=== PATIENT | female | born 1985 | race Two or more races ===

== ENCOUNTER 2018-06-27 20:55 | Inpatient (IN) | payer MEDICAID, MEDICARE, OTHER ==
[~2018-06-27] VITALS: Ht 165.1 cm; Wt 116.5 kg
[2018-06-27 22:21] LABS: HEMOGLOBIN 10.7 g/dl (12.0-15.5); MEAN CORPUSCULAR HEMOGLOBIN 24.2 pg (27.0-33.0); MEAN CORPUSCULAR HGB CONC 30.6 g/dl (32.0-36.5); MEAN CORPUSCULAR VOLUME 79.2 fl (80.0-96.0); PLATELET COUNT, AUTOMATED 418 10^3/uL (150-450); RED BLOOD COUNT 4.42 10^6/uL (4.00-5.40); WHITE BLOOD COUNT 10.1 10^3/uL (4.0-10.0)
[2018-06-27 22:33] LABS: HCG, SERUM QUALITATIVE NEGATIVE (NEGATIVE)
[2018-06-27 22:39] LABS: AMPHETAMINES LEVEL URINE NEGATIVE (NEGATIVE); BARBITURATES URINE NEGATIVE (NEGATIVE); BENZODIAZEPINES URINE NEGATIVE (NEGATIVE); CANNABINOIDS URINE NEGATIVE (NEGATIVE); COCAINE METABOLITE URINE NEGATIVE (NEGATIVE); METHADONE URINE NEGATIVE (NEGATIVE); OPIATES URINE NEGATIVE (NEGATIVE); PHENCYCLIDINE URINE NEGATIVE (NEGATIVE)
[2018-06-27 22:50] LABS: BLOOD UREA NITROGEN 16 MG/DL (7-18); CALCIUM LEVEL 8.9 MG/DL (8.5-10.1); CARBON DIOXIDE LEVEL 28 MEQ/L (21-32); CHLORIDE LEVEL 107 MEQ/L (98-107); CREATININE FOR GFR 0.88 MG/DL (0.55-1.30); GLOMERULAR FILTRATION RATE > 60.0 (>60); GLUCOSE, FASTING 110 MG/DL (70-100); POTASSIUM SERUM 4.2 MEQ/L (3.5-5.1); SODIUM LEVEL 140 MEQ/L (136-145)
[2018-06-27 22:51] LABS: ACETAMINOPHEN LEVEL < 2.0 UG/ML (10.0-30.0); ALBUMIN 3.7 GM/DL (3.2-5.2); ALT/SGPT 18 U/L (12-78); BILIRUBIN,DIRECT < 0.1 MG/DL (0.0-0.2); BILIRUBIN,TOTAL 0.2 MG/DL (0.2-1.0); ETHYL ALCOHOL (ETHANOL) < 0.003 % (0.000-0.010); SALICYLATE LEVEL < 1.7 MG/DL (5.0-30.0); TOTAL PROTEIN 7.7 GM/DL (6.4-8.2)
[2018-06-27] MEDS ORDERED: MOM 30ML SUSPENSION UDC PO PRN (23:45)
[2018-06-27] MEDS ORDERED: MAALOX 30 ML SUSP *UDC PO PRN (23:45)
[2018-06-27] MEDS ORDERED: ACETAMINOPHEN TAB 650MG DOSE (2X325MG) PO PRN (23:45)
[2018-06-27] MEDS ORDERED: OLANZapine 5 MG TAB PO PRN (23:45)
[2018-06-27] MEDS ORDERED: traZODone 50 MG TAB PO PRN (23:45)
[2018-06-28] MEDS ORDERED: QUET1TAB9 PO (00:09)
[2018-06-28] MEDS ORDERED: LORA1TAB12 PO (00:09)
[2018-06-28] MEDS ORDERED: LYRI75CA PO (00:09)
[2018-06-28] MEDS ORDERED: HYDR200T3 PO (00:09)
[2018-06-28] MEDS ORDERED: LAMO100T80 PO (00:09)
[2018-06-28] MEDS ORDERED: DICL75TA PO (00:09)
[2018-06-28] MEDS ORDERED: LATU40TA PO (00:09)
[2018-06-28] MEDS ORDERED: BUPR150T5 PO (00:09)
[2018-06-28] MEDS ORDERED: ENBR50IN6 SC (00:09)
[2018-06-28] MEDS ORDERED: DULO60CA35 PO (00:09)
[2018-06-28] MEDS ORDERED: PANT40TA3 PO (00:09)
[2018-06-28] MEDS ORDERED: PROAAER10 INH (00:09)
[2018-06-28 01:28] VITALS: BP 129/84
[2018-06-28 07:00] VITALS: BP 133/62
[2018-06-28] MEDS ORDERED: PANTOPRAZOLE 40MG TAB (PROTONIX) PO SCH ×2 (09:00→21:00)
[2018-06-28] MEDS ORDERED: DULoxetine 30 MG CAP (CYMBALTA) PO SCH (09:00)
[2018-06-28] MEDS: DICLOFENAC EPOLAMINE 1.3 % PATCH TOP SCH ×2 (09:00→21:00)
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
[2018-06-28] MEDS: HYDROXYCHLOROQUINE 200 MG TAB PO SCH ×2 (12:26→21:21)
[2018-06-28] MEDS: lamoTRIgine 100MG TAB PO SCH ×2 (12:27→21:21)
[2018-06-28] MEDS: PREGABALIN 75 MG CAP(LYRICA) PO SCH ×3 (12:28→21:22)
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
[2018-06-28 18:00] VITALS: BP 145/76
[2018-06-28] MEDS: QUEtiapine FUMARATE 200 MG TAB PO SCH (21:21)
[2018-06-28] MEDS: DULoxetine 30 MG CAP (CYMBALTA) PO SCH (21:22)
[2018-06-29 06:46] VITALS: BP 117/63
[2018-06-29] MEDS: HYDROXYCHLOROQUINE 200 MG TAB PO SCH ×2 (09:00→20:23)
[2018-06-29] MEDS: PREGABALIN 75 MG CAP(LYRICA) PO SCH ×3 (09:00→20:23)
[2018-06-29] MEDS: DICLOFENAC EPOLAMINE 1.3 % PATCH TOP SCH ×2 (09:00→20:20)
[2018-06-29] MEDS: lamoTRIgine 100MG TAB PO SCH ×2 (09:00→20:23)
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
--- NOTE | 2018-06-29 13:39 | MHIPN ---
DATE: 06/29/2018 SUBJECTIVE: "I did not sleep well, I feel tired because my ideas. Irritable bowel syndrome has flared up". OBJECTIVE: She is a 32-year-old female, , , unemployed, who was admitted because she came to the emergency room stating that she has suicidal thoughts and she has a razor in her car. Patient has legal issues. She is afraid of being arrested again and currently is depressed, has some vague suicidal thoughts. MENTAL STATUS EXAMINATION: Somewhat disheveled, sleeping in her room. Behavior is cooperative, somewhat withdrawn. Eye contact is indirect. Speech is soft, few words. Mood is depressed. Affect is constricted. Thought process linear and goal directed. Thought content: Complains of vague suicidal thoughts. Denied any auditory or visual hallucinations. She is oriented to time, place, and person. Memory is intact. Insight and judgment are good. DIAGNOSES: 1. Mood disorder, not otherwise specified. 2. Rule out bipolar disorder. Most recent episode depressed. 3. Borderline personality disorder. 4. Generalized anxiety disorder. 5. Posttraumatic stress disorder (PTSD). 6. Rule out alcohol use disorder. ASSESSMENT AND PLAN: Patient continues to be depressed. Complains of some physical problems and will be seen by the seconds grader. We will continue the same current medications. Followup with seconds grader's recommendation. Continue individual and group therapy.
[2018-06-29 18:00] VITALS: BP 117/59
[2018-06-29] MEDS: QUEtiapine FUMARATE 200 MG TAB PO SCH (20:23)
[2018-06-29] MEDS: PANTOPRAZOLE 40MG TAB (PROTONIX) PO SCH (20:23)
[2018-06-29] MEDS: DULoxetine 30 MG CAP (CYMBALTA) PO SCH (20:24)
[2018-06-30 06:46] VITALS: BP 126/64
[2018-06-30] MEDS: DICLOFENAC EPOLAMINE 1.3 % PATCH TOP SCH ×2 (09:00→21:00)
[2018-06-30] MEDS: HYDROXYCHLOROQUINE 200 MG TAB PO SCH ×2 (09:22→20:54)
[2018-06-30] MEDS: PREGABALIN 75 MG CAP(LYRICA) PO SCH ×3 (09:22→20:54)
[2018-06-30] MEDS: lamoTRIgine 100MG TAB PO SCH ×2 (09:22→20:53)
[2018-06-30] MEDS ORDERED: OLANZapine 2.5MG TABLET PO PRN (10:15)
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
[2018-06-30 18:27] VITALS: BP 117/60
[2018-06-30] MEDS: PANTOPRAZOLE 40MG TAB (PROTONIX) PO SCH (20:53)
[2018-06-30] MEDS: QUEtiapine FUMARATE 200 MG TAB PO SCH (20:54)
[2018-06-30] MEDS: DULoxetine 30 MG CAP (CYMBALTA) PO SCH (20:54)
[2018-07-01 06:55] VITALS: BP 117/68
[2018-07-01] MEDS: HYDROXYCHLOROQUINE 200 MG TAB PO SCH ×2 (09:16→21:35)
[2018-07-01] MEDS: lamoTRIgine 100MG TAB PO SCH ×2 (09:16→21:35)
[2018-07-01] MEDS: PREGABALIN 75 MG CAP(LYRICA) PO SCH ×3 (09:16→21:35)
[2018-07-01] MEDS: DICLOFENAC EPOLAMINE 1.3 % PATCH TOP SCH ×2 (09:16→21:00)
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
[2018-07-01] MEDS: hydrOXYzine 25 MG TAB PO PRN (17:25)
[2018-07-01 18:00] VITALS: BP 142/82
[2018-07-01] MEDS: DULoxetine 30 MG CAP (CYMBALTA) PO SCH (21:35)
[2018-07-01] MEDS: QUEtiapine FUMARATE 200 MG TAB PO SCH (21:35)
[2018-07-01] MEDS: PANTOPRAZOLE 40MG TAB (PROTONIX) PO SCH (21:35)
[2018-07-02 06:43] VITALS: BP 113/54
[2018-07-02] MEDS: HYDROXYCHLOROQUINE 200 MG TAB PO SCH ×2 (09:34→21:26)
[2018-07-02] MEDS: lamoTRIgine 100MG TAB PO SCH ×2 (09:34→21:26)
[2018-07-02] MEDS: PREGABALIN 75 MG CAP(LYRICA) PO SCH ×3 (09:34→21:27)
[2018-07-02] MEDS: DICLOFENAC EPOLAMINE 1.3 % PATCH TOP SCH ×2 (09:35→21:00)
[2018-07-02] MEDS: hydrOXYzine 25 MG TAB PO PRN (17:24)
[2018-07-02 18:10] VITALS: BP 117/59
[2018-07-02] MEDS: QUEtiapine FUMARATE 200 MG TAB PO SCH (21:27)
[2018-07-02] MEDS: PANTOPRAZOLE 40MG TAB (PROTONIX) PO SCH (21:27)
[2018-07-02] MEDS: DULoxetine 30 MG CAP (CYMBALTA) PO SCH (21:27)
[2018-07-03 00:34] VITALS: BP 110/55
[2018-07-03 07:06] VITALS: BP 121/61
[2018-07-03] MEDS: DICLOFENAC EPOLAMINE 1.3 % PATCH TOP SCH ×2 (09:00→21:00)
[2018-07-03] MEDS: PREGABALIN 75 MG CAP(LYRICA) PO SCH ×3 (09:30→21:17)
[2018-07-03] MEDS: lamoTRIgine 100MG TAB PO SCH ×2 (09:30→21:16)
[2018-07-03] MEDS: HYDROXYCHLOROQUINE 200 MG TAB PO SCH ×2 (09:30→21:17)
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
[2018-07-03] MEDS: hydrOXYzine 25 MG TAB PO PRN (14:51)
[2018-07-03 18:00] VITALS: BP 129/74
[2018-07-03] MEDS ORDERED: QUEtiapine FUMARATE 100 MG TAB PO SCH (21:00)
[2018-07-03] MEDS: DULoxetine 30 MG CAP (CYMBALTA) PO SCH (21:16)
[2018-07-03] MEDS: PANTOPRAZOLE 40MG TAB (PROTONIX) PO SCH (21:17)
[2018-07-03] MEDS: QUEtiapine FUMARATE 200 MG TAB PO SCH (21:50)
[2018-07-04 06:40] VITALS: BP 121/55
[2018-07-04] MEDS: DICLOFENAC EPOLAMINE 1.3 % PATCH TOP SCH ×2 (09:00→21:00)
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
[2018-07-04] MEDS: PREGABALIN 75 MG CAP(LYRICA) PO SCH ×3 (09:57→21:31)
[2018-07-04] MEDS: lamoTRIgine 100MG TAB PO SCH ×2 (09:57→21:31)
[2018-07-04] MEDS: HYDROXYCHLOROQUINE 200 MG TAB PO SCH ×2 (09:57→21:31)
--- NOTE | 2018-07-04 10:17 | REP ---
LEFT ELBOW, FOUR VIEWS: HISTORY: Pain. There is no acute fracture or dislocation. The joint space is normal in appearance. IMPRESSION: There is no acute fracture or dislocation. Electronically Signed by Jose Angel Kwan MD 07/04/2018 10:32 A
[2018-07-04 18:18] VITALS: BP 108/58
[2018-07-04] MEDS: hydrOXYzine 25 MG TAB PO PRN (20:35)
[2018-07-04] MEDS: DULoxetine 30 MG CAP (CYMBALTA) PO SCH (21:31)
[2018-07-04] MEDS: QUEtiapine FUMARATE 200 MG TAB PO SCH (21:31)
[2018-07-04] MEDS: PANTOPRAZOLE 40MG TAB (PROTONIX) PO SCH (21:31)
[2018-07-05 06:38] VITALS: BP 114/58
[2018-07-05] MEDS: DICLOFENAC EPOLAMINE 1.3 % PATCH TOP SCH (09:00)
[2018-07-05] MEDS: lamoTRIgine 100MG TAB PO SCH (09:06)
[2018-07-05] MEDS: HYDROXYCHLOROQUINE 200 MG TAB PO SCH (09:06)
[2018-07-05] MEDS ORDERED: QUET1TAB9 PO (09:15)
[2018-07-05] MEDS ORDERED: HYDR-3363 PO (09:15)
[2018-07-05] MEDS ORDERED: DULO60CA35 PO (09:15)
[2018-07-05] MEDS ORDERED: LAMO100T80 PO (09:15)
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
== END 2018-07-05 12:15 | disposition home or self-care (01) | DRG 755 ==
LOC: M ED 20:55 → M ED INP 23:32 → M PSY 06-28 00:30
PROVIDERS: ADMIT Psychiatry & Neurology Psychiatry; ATTEND Psychiatry & Neurology Psychiatry
DX: F43.10 Post-traumatic stress disorder, unspecified (principal); L40.50 Arthropathic psoriasis, unspecified; F31.9 Bipolar disorder, unspecified; F60.3 Borderline personality disorder; F41.1 Generalized anxiety disorder; R19.7 Diarrhea, unspecified; M79.7 Fibromyalgia; F10.10 Alcohol abuse, uncomplicated; Z65.3 Problems related to other legal circumstances; K21.9 Gastro-esophageal reflux disease without esophagitis; Z91.5 Personal history of self-harm; Z59.0 Homelessness; Z76.5 Malingerer [conscious simulation]; Z88.8 Allergy status to other drugs, medicaments and biological substances; Z79.899 Other long term (current) drug therapy

== ENCOUNTER 2018-08-24 21:55 | Inpatient (IN) | payer OTHER ==
[~2018-08-24] VITALS: Ht 165.1 cm; Wt 118.5 kg
[~2018-08-24 21:55] MED LIST: BUPR150T5 PO; DICL75TA PO; DULO60CA35 PO; ENBR50IN6 SC; HYDR-3363 PO; HYDR200T3 PO; LAMO100T80 PO; LATU40TA PO; LORA1TAB12 PO; LYRI75CA PO; PANT40TA3 PO; PROAAER10 INH; QUET1TAB9 PO
[2018-08-24] MEDS ORDERED: LATU40TA PO (22:08)
[2018-08-25] MEDS ORDERED: hydrOXYzine 25 MG TAB PO STA (02:24)
[2018-08-25 02:25] LABS: BASO # 0.1 10^3/uL (0.0-0.2); BASO % 0.4 % (0.0-1.0); EOS # 0.1 10^3/uL (0.0-0.50); EOS % 0.7 % (0.0-3.0); HEMATOCRIT 35.2 % (36.0-47.0); HEMOGLOBIN 10.9 g/dl (12.0-15.5); LYMPH # 3.5 10^3/uL (1.5-4.5); LYMPH % 25.6 % (24.0-44.0); MEAN CORPUSCULAR HEMOGLOBIN 24.6 pg (27.0-33.0); MEAN CORPUSCULAR VOLUME 79.5 fl (80.0-96.0); MONO # 0.8 10^3/uL (0.0-0.8); NEUTROPHILS # 9.2 10^3/uL (1.8-7.7); NEUTROPHILS % 66.9 % (36.0-66.0); PLATELET COUNT, AUTOMATED 427 10^3/uL (150-450); RED BLOOD COUNT 4.43 10^6/uL (4.00-5.40); WHITE BLOOD COUNT 13.7 10^3/uL (4.0-10.0)
[2018-08-25] MEDS ORDERED: BUSP10TA PO (02:30)
[2018-08-25] MEDS ORDERED: ENBR50IN6 SC (02:30)
[2018-08-25 02:51] LABS: ALBUMIN 3.2 GM/DL (3.2-5.2); ALT/SGPT 17 U/L (12-78); BILIRUBIN,DIRECT < 0.1 MG/DL (0.0-0.2); BILIRUBIN,TOTAL < 0.1 MG/DL (0.2-1.0); BLOOD UREA NITROGEN 8 MG/DL (7-18); CALCIUM LEVEL 8.9 MG/DL (8.5-10.1); CARBON DIOXIDE LEVEL 28 MEQ/L (21-32); CHLORIDE LEVEL 104 MEQ/L (98-107); CREATININE FOR GFR 0.89 MG/DL (0.55-1.30); GLOMERULAR FILTRATION RATE > 60.0 (>60); GLUCOSE, FASTING 113 MG/DL (70-100); LIPASE 101 U/L (73-393); POTASSIUM SERUM 4.4 MEQ/L (3.5-5.1); SODIUM LEVEL 139 MEQ/L (136-145); TOTAL PROTEIN 7.9 GM/DL (6.4-8.2)
[2018-08-25] MEDS ORDERED: KETOROLAC 30 MG/ML VIAL (J1885) IV ONE (05:45)
[2018-08-25] MEDS ORDERED: PIPERACILLIN/TAZOBACTAM SOD 4.5 GM in D5W MINI-BAG PLUS 50 ML IV ONE (06:15)
[2018-08-25] MEDS ORDERED: VANCOMYCIN HCL 1,000 MG, VIAL MATE ADAPTER 1 EACH in D5W 250 ML IV ONE ×2 (06:15→12:30)
--- NOTE | 2018-08-25 06:26 | REPVR ---
EXAM: US Abdomen Limited EXAM DATE/TIME: 08/25/2018 3:24 AM CLINICAL HISTORY: 32 years old, female; Abdominal pain; Localized; Left upper quadrant (luq); Additional info: Cellulitis redness eval for abscess TECHNIQUE: Imaging protocol: Real-time ultrasound of the abdomen with image documentation. Examination is focused on the region of clinical interest. COMPARISON: No relevant prior studies available. FINDINGS: Soft tissues: Limited ultrasound of the left upper abdominal quadrant soft tissues at the area of cellulitis demonstrates no mass or fluid collection. IMPRESSION: No subcutaneous mass or fluid collection/abscess in the left upper abdominal quadrant at the site of clinical concern-cellulitis. Electronically signed by: Jong Moeller On 08/25/2018 06:26:14 AM
[2018-08-25] MEDS ORDERED: LAMO100T PO (06:33)
[2018-08-25] MEDS ORDERED: CYMB1CAP5 PO (06:33)
[2018-08-25] MEDS ORDERED: HYDR-3363 PO (06:33)
[2018-08-25] MEDS ORDERED: CYMB60CA3 PO (06:33)
[2018-08-25] MEDS ORDERED: QUET1TAB9 PO (06:33)
[2018-08-25] MEDS ORDERED: MOM 30ML SUSPENSION UDC PO PRN (10:45)
[2018-08-25] MEDS ORDERED: ACETAMINOPHEN TAB 650MG DOSE (2X325MG) PO PRN (10:45)
[2018-08-25] MEDS ORDERED: hydrOXYzine 25 MG TAB PO PRN (10:45)
[2018-08-25] MEDS ORDERED: MAALOX 30 ML SUSP *UDC PO PRN (10:45)
--- NOTE | 2018-08-25 11:43 | REP ---
Chest one-view HISTORY: Cellulitis Comparison: None The lungs are clear. The heart is normal in size. The pulmonary vasculature is normal in appearance. Impression: No acute disease. Electronically Signed by Jose Angel Kwan MD 08/25/2018 11:35 A
[2018-08-25 12:00] VITALS: BP 123/69
[2018-08-25] MEDS: DOCUSATE SODIUM 100 MG CAP PO SCH ×3 (12:52→20:37)
[2018-08-25] MEDS: lamoTRIgine 100MG TAB PO SCH ×2 (12:52→20:29)
[2018-08-25] MEDS: busPIRone 10 MG TAB PO SCH ×3 (12:52→20:29)
[2018-08-25] MEDS: AMPICILLIN SOD/SULBACTAM SOD 1.5 GM in D5W MINI-BAG PLUS 50 ML IV SCH ×2 (12:53→18:07)
[2018-08-25] MEDS: NS 1,000 ML IV SCH (12:53)
[2018-08-25 14:00] VITALS: BP 137/86
[2018-08-25] MEDS: HEPARIN SOD (PORCINE) 5000 UNITS/ML VIAL SC SCH ×2 (14:00→22:18)
[2018-08-25] MEDS: HYDROXYCHLOROQUINE 200 MG TAB PO SCH ×2 (14:37→20:29)
--- NOTE | 2018-08-25 15:20 | PHACANCOPD ---
PHARMACY VANCOMYCIN DOSING Pt Demographics Demographics Patient Age:32 , Weight:118.500 , Gender: female Adjusted Body Weight Date: 08/25/18, Adjusted Body Weight: Kg Events Past 24 Hours Events Past 24 Hours: NO: Dialysis, Diuretic Therapy, Change in CrCl, Fever, Elevation in WBC, Pending Diagnostics, Pending Procedures, Other Vancomycin Vancomycin indication: ABDOMINAL WALL CELLULITIS Vancomycin Target Ranges: 15-20 mcg/ml Vancomycin Load Y/N: Yes Load Dose Date Time Vancomycin Load Dose: 2000MG Date: 08/25 Time: 641,1437 Vancomycin Dose Date: 08/25/18. Current Vancomycin Dose: [1750MG IV Q12H@21] Intermittent Dosing?: No Labs Labs Item Value Date Time White Blood Count 13.7 10^3/uL H 08/25/18 0212 Micro Microbiology 08/25/18 Blood Culture, Received Pending 08/25/18 MRSA Screen, Received Pending 08/25/18 Wound Culture, Received Pending Creatinine Clearance Date:08/25/18. Creatinine Clearance: . Assessment and Plan Maintaining Current Dose?: Yes Reason for dose change: No Dose Change Pharmacist Note Pharmacist Note Date: 08/25/18. Pharmacist note: There is no H&P available at the time of this note. Patient was admitted for abdominal wall cellulitis and she was originally seen in [facility]. She has no history of MRSA or Vancomycin use at our facility. She is afebrile and her WBC is slightly elevated upon admission. She was loaded with 2000mg of Vancomycin and continued on Vancomycin 1750mg IV q12h from there. We will continue to monitor and make adjustments as necessary. CON[facility] Aug 25, 2018 15:20
--- NOTE | 2018-08-25 16:21 | HPEPDOC ---
General Date of Admission Aug 25, 2018 at 10:42 Date of Service: Aug 25, 2018 Primary Care Physician: A Chief Complaint Skin ulcer with drainage Source: Patient, Old records History of Present Illness The patient is a 32-year-old female with extensive psychiatric history including major depressive disorder, bipolar mood disorder, PTSD who presented to the ED due to having 1 week of skin ulceration with drainage. Upon my encounter, patient is sitting in the bed, awake and alert and oriented, is not in any acute distress. ED monitor was reviewed vital signs are within normal limits, patient is not tachycardic. She states that for the past week she noticed that there is a rash on the skin of her abdominal wall which further progressed to a bigger s ize and started having a drainage. The drainage is a clear fluid. The skin lesion is associated with pain and tenderness as well as erythematous changes in the surrounding area. Patient denies any recent trauma to the area. Denies having any fever or chills. Patient is otherwise in her usual state of health with no other medical complaints. Home Medications Scheduled Buspirone HCl (Buspirone HCl) 10 Mg Tablet, 10 MG PO TID, (Reported) Duloxetine Hcl (Cymbalta) 30 Mg Capsule.dr, 30 MG PO QHS, (Reported) TAKES WITH 60MG FOR 90MG TOTAL Duloxetine Hcl (Cymbalta) 60 Mg Capsule.dr, 60 MG PO QHS, (Reported) TAKES WITH 30MG FOR 90MG TOTAL Etanercept (Enbrel Mini) 50 Mg/1 Ml Cartridge, 50 MG SC QWEEK, (Reported) Hydroxychloroquine Sulfate (Hydroxychloroquine Sulfate) 200 Mg Tablet, 200 MG PO BID, (Reported) Lamotrigine (Lamotrigine) 100 Mg Tablet, 100 MG PO BID, (Reported) Lurasidone Hydrochloride (Latuda) 40 Mg Tablet, 40 MG PO QPM, (Reported) Pantoprazole Sodium (Pantoprazole Sodium) 40 Mg Tablet.dr, 40 MG PO DAILY, (Reported) Pregabalin (Lyrica) 75 Mg Capsule, 75 MG PO TID, (Reported) Quetiapine Fumarate (Quetiapine Fumarate) 200 Mg Tablet, 200 MG PO QHS, (Reported) Scheduled PRN Albuterol Sulfate (Proair Hfa) 8.5 Gm Hfa.aer.ad, 2 PUFF INH Q6H PRN for SHORTNESS OF BREATH, (Reported) Hydroxyzine HCl (Hydroxyzine HCl) 25 Mg Tablet, 25 MG PO TID PRN for ANXIETY, (Reported) Allergies Coded Allergies: diazepam (Verified Allergy, Intermediate, SI, 06/27/18) topiramate (Verified Allergy, Intermediate, SI, 06/27/18) ziprasidone (Verified Allergy, Intermediate, hives, 06/27/18) clomipramine (Unverified Adverse Reaction, Unknown, ANXIETY, 06/28/18) gabapentin (Unverified Adverse Reaction, Unknown, INCREASED ANGER, 06/28/18) Past Medical History Medical History Major depressive disorder Bipolar mood disorder PTSD Obesity Surgical History Denies any past surgical history. Family History Patient states that there is diabetes in the maternal side and there is cardiac conditions in the paternal side. Social History * Smoker: Denies Alcohol: Denies Drugs: denies Recent Travel/Sick Contacts: Denies: Recent travel, Recent sick contacts Psychosocial History: Anxiety, Att. deficit disorder, Bipolar, Depression, Personality disorder NOS, PTSD A-FIB/CHADSVASC A-FIB History Current/History of A-Fib/PAF?: No Review of Systems Constitutional: Denies: Chills, Fever, Night Sweats Eyes: Denies: Pain, Vision change ENT: Denies: Head Aches, Ear Pain, Dysphagia Skin: Reports: Rash, Lesions (patient complains of having 1 week of skin lesion which is located in her abdominal wall, the lesion is painful, she also reports fluid drainage for the past 3 days.) Pulmonary: Denies: Dyspnea, Cough Cardiovascular: Denies: Chest Pain, Palpitations, Orthopnea, Paroxysmal Noc. Dyspnea, Lt Headedness Gastrointestinal: Denies: Nausea, Vomiting, Abdominal Pain, Diarrhea Genitourinary: Denies: Dysuria, Frequency, Incontinence, Retention Musculoskeletal: Denies: Neck Pain, Back Pain, Joint Pain, Muscle Pain, Spasms Neurological: Denies: Weakness, Numbness, Change in speech, Confusion Physical Examination General Exam: Positive: Alert, No Acute Distress Eye Exam: Positive: PERRLA, Conjunctiva & lids normal, EOMI; Negative: Sclera icteric ENT Exam: Positive: Atraumatic, Mucous membr. moist/pink, Pharynx Normal Neck Exam: Positive: Supple; Negative: JVD, thyromegaly Chest Exam: Positive: Clear to auscultation, Normal air movement Heart Exam: Positive: Rate Normal, Regular Rhythm, Normal S1, Normal S2; Negative: Murmurs, Rubs Telemetry: Positive: No significant arrhythmia Extremity Exam: Positive: Normal pulses; Negative: Clubbing, Cyanosis, Edema Skin Exam: Positive: Lesion (there is an area of 2 x 2 centimeter Skin lesion with erythema and tenderness, located in the anterior abdominal wall, there is fluid drainage, the fluid is clear no pus appreciated, there is also an area of induration adjacent to the skin lesion.) Neuro Exam: Positive: Normal Gait, Normal Speech, Cranial Nerves 3-12 NL, Reflexes 2+ Vital Signs Vital Signs Date Time Temp Pulse Resp B/P (MAP) Pulse Ox O2 Delivery O2 Flow Rate FiO2 08/25/18 14:00 98.2 95 20 137/86 (103) 100 08/25/18 08:30 Room Air Laboratory Data Labs 24H Laboratory Tests 2 08/25/18 02:12: Immature Granulocyte % (Auto) 0.4, White Blood Count 13.7H, Red Blood Count 4.43, Hemoglobin 10.9L, Hematocrit 35.2L, Mean Corpuscular Volume 79.5L, Mean Corpuscular Hemoglobin 24.6L, Mean Corpuscular Hemoglobin Concent 31.0L, Red Elise l Distribution Width 15.3H, Platelet Count 427, Neutrophils (%) (Auto) 66.9H, Lymphocytes (%) (Auto) 25.6, Monocytes (%) (Auto) 6.0H, Eosinophils (%) (Auto) 0.7, Basophils (%) (Auto) 0.4, Neutrophils # (Auto) 9.2H, Lymphocytes # (Auto) 3.5, Monocytes # (Auto) 0.8, Eosinophils # (Auto) 0.1, Basophils # (Auto) 0.1, Nucleated Red Blood Cells % (auto) 0.0, Anion Gap 7L, Glomerular Filtration Rate > 60.0, Calcium Level 8.9, Aspartate Amino Transf (AST/SGOT) 6L, Alanine Aminotransferase (ALT/SGPT) 17, Alkaline Phosphatase 138H, Total Bilirubin < 0.1L, Direct Bilirubin < 0.1, Total Protein 7.9, Albumin 3.2, Albumin/Globulin Ratio 0.68L, Lipase 101 CBC/BMP Laboratory Tests 08/25/18 02:12 Red Blood Count 4.43, Mean Corpuscular Volume 79.5 L, Mean Corpuscular Hemoglobin 24.6 L, Mean Corpuscular Hemoglobin Concent 31.0 L, Red Cell Distribution Width 15.3 H, Neutrophils (%) (Auto) 66.9 H, Lymphocytes (%) (Auto) 25.6, Monocytes (%) (Auto) 6.0 H, Eosinophils (%) (Auto) 0.7, Basophils (%) (Auto) 0.4, Neutrophils # (Auto) 9.2 H, Lymphocytes # (Auto) 3.5, Monocytes # (Auto) 0.8, Eosinophils # (Auto) 0.1, Basophils # (Auto) 0.1 Microbiology Microbiology 08/25/18 Blood Culture, Received Pending 08/25/18 MRSA Screen, Received Pending 08/25/18 Wound Culture, Received Pending Assessment/Plan Patient is 32-year-old female with no past medical history, extensive psychiatric history with recent hospitalization in mental health unit, presented to Hospital for having 1 week of a skin ulcer with drainage. Physical examination reveals cellulitis of abdominal wall with fluid drainage surrounded by an area of fullness and in duration, CBC reveals a leukocytosis with predominant neutrophilic count, patient is afebrile, Pt is awake alert and oriented 3 with no hemodynamic derangements. No electrolyte abnormalities noted. 1-Cellulitis of abdominal wall with abscess formation: Will admit patient to regular medicine floor monitoring vital sign as per protocol, patient can have regular diet, IV fluid normal saline at 80 ML per hour, CBC CMP in a.m., wound culture and blood culture was sent in the ED. Will start patient on vancomycin and Unasyn. Imaging of the abdominal wall was ordered to rule out presence of any Air in the soft tissue. cooler room worker consult Daily wound care with dressing change Continue home medications. Plan / VTE VTE Prophylaxis Ordered?: Yes AMBER PROCTOR MD Aug 25, 2018 16:21
[2018-08-25] MEDS: PREGABALIN 75 MG CAP(LYRICA) PO SCH ×2 (16:43→20:29)
[2018-08-25] MEDS: VANCOMYCIN HCL 750 MG, VIAL MATE ADAPTER 1 EACH in D5W 250 ML IV SCH (20:28)
[2018-08-25] MEDS: LURASIDONE HCL 40 MG TAB (LATUDA) PO SCH (20:29)
[2018-08-25] MEDS: QUEtiapine FUMARATE 200 MG TAB PO SCH (20:29)
[2018-08-25] MEDS: DULoxetine 30 MG CAP (CYMBALTA) PO SCH (20:30)
[2018-08-25 22:00] VITALS: BP 128/66
[2018-08-25] MEDS ORDERED: traMADol 50 MG TAB PO PRN (22:15)
[2018-08-25] MEDS: VANCOMYCIN HCL 1,000 MG, VIAL MATE ADAPTER 1 EACH in D5W 250 ML IV SCH (22:17)
[2018-08-26] MEDS: AMPICILLIN SOD/SULBACTAM SOD 1.5 GM in D5W MINI-BAG PLUS 50 ML IV SCH ×4 (00:20→17:29)
[2018-08-26 06:00] VITALS: BP 130/68
[2018-08-26] MEDS: HEPARIN SOD (PORCINE) 5000 UNITS/ML VIAL SC SCH ×3 (06:54→22:25)
[2018-08-26 07:32] LABS: ALBUMIN 2.7 GM/DL (3.2-5.2); ALT/SGPT 20 U/L (12-78); BILIRUBIN,TOTAL < 0.1 MG/DL (0.2-1.0); BLOOD UREA NITROGEN 12 MG/DL (7-18); CARBON DIOXIDE LEVEL 27 MEQ/L (21-32); CHLORIDE LEVEL 108 MEQ/L (98-107); CREATININE FOR GFR 0.81 MG/DL (0.55-1.30); GLOMERULAR FILTRATION RATE > 60.0 (>60); GLUCOSE, FASTING 199 MG/DL (70-100); POTASSIUM SERUM 4.1 MEQ/L (3.5-5.1); SODIUM LEVEL 142 MEQ/L (136-145); TOTAL PROTEIN 6.9 GM/DL (6.4-8.2)
[2018-08-26] MEDS: PREGABALIN 75 MG CAP(LYRICA) PO SCH ×3 (08:37→20:30)
[2018-08-26] MEDS: NS 1,000 ML IV SCH (08:37)
[2018-08-26] MEDS: busPIRone 10 MG TAB PO SCH ×3 (08:38→20:30)
[2018-08-26] MEDS: DOCUSATE SODIUM 100 MG CAP PO SCH ×2 (08:38→20:30)
[2018-08-26] MEDS: lamoTRIgine 100MG TAB PO SCH ×2 (08:38→20:30)
[2018-08-26] MEDS: HYDROXYCHLOROQUINE 200 MG TAB PO SCH ×2 (08:38→20:30)
[2018-08-26] MEDS: PANTOPRAZOLE 40MG TAB (PROTONIX) PO SCH (08:38)
[2018-08-26] MEDS: VANCOMYCIN HCL 750 MG, VIAL MATE ADAPTER 1 EACH in D5W 250 ML IV SCH ×2 (09:15→20:22)
[2018-08-26] MEDS: VANCOMYCIN HCL 1,000 MG, VIAL MATE ADAPTER 1 EACH in D5W 250 ML IV SCH ×2 (10:36→22:25)
[2018-08-26 14:00] VITALS: BP 129/84
[2018-08-26] MEDS: LURASIDONE HCL 40 MG TAB (LATUDA) PO SCH (17:29)
--- NOTE | 2018-08-26 18:46 | IPNPDOC ---
Text Note Date of Service The patient was seen on 08/26/18. NOTE Pt was seen and examined at bedside. The dressing was removed. Purulent disc harge drains upon applying pressure. Evaluated pt with presence of travel occupational therapist general surgeon , who states that physical finding is consistent with fat necrosis, minimal abscess collection. Abdomen CT was also reviewed , consistent with same. No fever recorded. Mild leukocytosis. MRSA screen positive. Subjective: Constitutional: Denies: Chills, Fever, Night Sweats Eyes: Denies: Pain, Vision change ENT: Denies: Head Aches, Ear Pain, Dysphagia Skin: Reports: Rash, Lesions (patient complains of having 1 week of skin lesion which is located in her abdominal wall, the lesion is painful, she also reports fluid drainage for the past 3 days.) Pulmonary: Denies: Dyspnea, Cough Cardiovascular: Denies: Chest Pain, Palpitations, Orthopnea, Paroxysmal Noc. Dyspnea, Lt Headedness Gastrointestinal: Denies: Nausea, Vomiting, Abdominal Pain, Diarrhea Genitourinary: Denies: Dysuria, Frequency, Incontinence, Retention Musculoskeletal: Denies: Neck Pain, Back Pain, Joint Pain, Muscle Pain, Spasms Neurological: Denies: Weakness, Numbness, Change in speech, Confusion Physical Examination General Exam: Positive: Alert, No Acute Distress Eye Exam: Positive: PERRLA, Conjunctiva & lids normal, EOMI; Negative: Sclera icteric ENT Exam: Positive: Atraumatic, Mucous membr. moist/pink, Pharynx Normal Neck Exam: Positive: Supple; Negative: JVD, thyromegaly Chest Exam: Positive: Clear to auscultation, Normal air movement Heart Exam: Positive: Rate Normal, Regular Rhythm, Normal S1, Normal S2; Negative: Murmurs, Rubs Telemetry: Positive: No significant arrhythmia Extremity Exam: Positive: Normal pulses; Negative: Clubbing, Cyanosis, Edema Skin Exam: Positive: Lesion (there is an area of 2 x 2 centimeter Skin lesion with erythema and tenderness, located in the anterior abdominal wall, there is fluid drainage, the fluid is clear no pus appreciated, there is also an area of induration adjacent to the skin lesion.) Neuro Exam: Positive: Normal Gait, Normal Speech, Cranial Nerves 3-12 NL, Reflexes 2+ Vital Signs Date Time Temp Pulse Resp B/P (MAP) Pulse Ox O2 Delivery O2 Flow Rate FiO2 08/26/18 14:00 99.7 96 18 129/84 (99) 96 08/26/18 06:00 98.8 93 130/68 (88) 96 08/25/18 22:48 18 08/25/18 22:18 18 08/25/18 22:00 98.3 86 20 128/66 (86) 100 Intake & Output 08/26/18 06:00 Intake Total 1100 ml Output Total 0 ml Balance 1100 ml Laboratory Tests 08/26/18 06:49: Blood Urea Nitrogen 12, Creatinine 0.81, Sodium Level 142, Potassium Level 4.1, Chloride Level 108H, Carbon Dioxide Level 27, Calcium Level 9.0, Aspartate Amino Transf (AST/SGOT) 7, Alanine Aminotransferase (ALT/SGPT) 20, Alkaline Phosp hatase 108, Total Bilirubin < 0.1L, Total Protein 6.9, Albumin 2.7L, Anion Gap 7L, Glomerular Filtration Rate > 60.0, Fasting Glucose 199H, Lactic Acid Level 1.7, Magnesium Level 2.0, Albumin/Globulin Ratio 0.64L, Procalcitonin 0.07 Microbiology 08/25/18 MRSA Screen - Final, Complete Staph.aureus Methicillin Resis Current Medications Medications (Trade) Dose Ordered Sig/Elena Route PRN Reason Start Time Stop Time Status Last Admin Dose Admin Acetaminophen (Tylenol Tab) 650 mg Q4H PRN PO PAIN OR FEVER 08/25/18 10:45 08/25/18 12:53 650 MG Ampicillin Sodium/ Sulbactam Sodium 1.5 gm/Dextrose 50 ml @ 100 mls/hr Q6H IV 08/25/18 12:00 08/26/18 17:29 100 MLS/HR Buspirone HCl (Buspar) 10 mg TID PO 08/25/18 09:00 08/26/18 15:10 10 MG Docusate Sodium (Colace) 100 mg BID PO 08/25/18 09:00 08/26/18 08:38 100 MG Duloxetine HCl (Cymbalta) 90 mg QHS PO 08/25/18 21:00 08/25/18 20:30 90 MG Heparin Sodium (Porcine) (Heparin) 5,000 units Q8H SC 08/25/18 14:00 08/26/18 15:11 5,000 UNITS Hydroxychloroquine Sulfate (Plaquenil) 200 mg BID PO 08/25/18 09:00 08/26/18 08:38 200 MG Hydroxyzine HCl (Atarax) 25 mg TID PRN PO ANXIETY 08/25/18 10:45 08/25/18 12:52 25 MG Lamotrigine (LaMICtal) 100 mg BID PO 08/25/18 09:00 08/26/18 08:38 100 MG Lurasidone HCl (Latuda) 40 mg DAILY@1800 PO 08/25/18 18:00 08/26/18 17:29 40 MG Pantoprazole Sodium (Protonix) 40 mg DAILY PO 08/26/18 09:00 08/26/18 08:38 40 MG Pregabalin (Lyrica) 75 mg TID PO 08/25/18 16:00 08/26/18 15:10 75 MG Quetiapine Fumarate (SEROquel) 200 mg QHS PO 08/25/18 21:00 08/25/18 20:29 200 MG Tramadol HCl (Ultram) 50 mg Q6HP PRN PO MODERATE PAIN (PS 5-7) 08/25/18 22:15 08/28/18 22:14 08/25/18 22:18 50 MG Vancomycin HCl 750 mg/IV Miscellaneous Supplies 1 each/ Dextrose 275 ml @ 275 mls/hr Q12H IV 08/25/18 21:00 08/26/18 09:15 275 MLS/HR Vancomycin HCl 1000 mg/IV Miscellaneous Supplies 1 each/ Dextrose 270 ml @ 270 mls/hr Q12H IV 08/25/18 22:00 08/26/18 10:36 270 MLS/HR Assessment/Plan Patient is 32-year-old female with no significant past medical history, extensive psychiatric history with recent hospitalization in mental health unit, presented to Hospital for having 1 week of a skin ulcer with drainage. Physical examination reveals cellulitis of abdominal wall with fluid drainage surrounded by an area of fullness and in duration, CBC reveals a leukocytosis with predominant neutrophilic count, patient is afebrile, Pt is awake alert and oriented 3 with no hemodynamic derangements. No electrolyte abnormalities noted. 1-Cellulitis of abdominal wall with fat necrosis: Cont monitoring vital sign as per protocol, patient can have regular diet, IV fluid normal saline at 80 ML per hour DC, CBC CMP in a.m., wound culture and blood culture was sent in the ED. Cont. vancomycin and Unasyn. Imaging of the abdominal wall was ordered to rule out presence of any Air in the soft tissue. plant and equipment worker consult Daily wound care with dressing change Continue home medications. VS,Fishbone, I+O VS, Fishbone, I+O Laboratory Tests 08/26/18 06:49 Calcium Level 9.0, Aspartate Amino Transf (AST/SGOT) 7, Alanine Aminotransferase (ALT/SGPT) 20, Alkaline Phosphatase 108, Total Bilirubin < 0.1 L, Total Protein 6.9, Albumin 2.7 L Vital Signs Date Time Temp Pulse Resp B/P (MAP) Pulse Ox O2 Delivery O2 Flow Rate FiO2 08/26/18 14:00 99.7 96 18 129/84 (99) 96 08/25/18 08:30 Room Air I&O- Last 24 Hours up to 6 AM 08/26/18 06:00 Intake Total 1100 ml Output Total 0 ml Balance 1100 ml AMBER PROCTOR MD Aug 26, 2018 18:46
[2018-08-26] MEDS: DULoxetine 30 MG CAP (CYMBALTA) PO SCH (20:30)
[2018-08-26] MEDS: QUEtiapine FUMARATE 200 MG TAB PO SCH (20:30)
[2018-08-26 22:00] VITALS: BP 127/81
[2018-08-27] MEDS: AMPICILLIN SOD/SULBACTAM SOD 1.5 GM in D5W MINI-BAG PLUS 50 ML IV SCH ×2 (00:23→05:45)
[2018-08-27] MEDS: HEPARIN SOD (PORCINE) 5000 UNITS/ML VIAL SC SCH (05:45)
[2018-08-27 06:00] VITALS: BP 134/75
[2018-08-27 08:49] LABS: BASO % 0.5 % (0.0-1.0); EOS # 0.2 10^3/uL (0.0-0.50); HEMATOCRIT 31.6 % (36.0-47.0); HEMOGLOBIN 9.6 g/dl (12.0-15.5); LYMPH # 2.7 10^3/uL (1.5-4.5); MEAN CORPUSCULAR HEMOGLOBIN 23.8 pg (27.0-33.0); MEAN CORPUSCULAR HGB CONC 30.4 g/dl (32.0-36.5); MEAN CORPUSCULAR VOLUME 78.2 fl (80.0-96.0); MONO # 0.6 10^3/uL (0.0-0.8); MONO % 6.9 % (0.0-5.0); NEUTROPHILS # 4.5 10^3/uL (1.8-7.7); NEUTROPHILS % 56.3 % (36.0-66.0); PLATELET COUNT, AUTOMATED 371 10^3/uL (150-450); RED BLOOD COUNT 4.04 10^6/uL (4.00-5.40)
[2018-08-27] MEDS: PANTOPRAZOLE 40MG TAB (PROTONIX) PO SCH (08:59)
[2018-08-27] MEDS: busPIRone 10 MG TAB PO SCH (08:59)
[2018-08-27] MEDS: PREGABALIN 75 MG CAP(LYRICA) PO SCH (08:59)
[2018-08-27] MEDS: lamoTRIgine 100MG TAB PO SCH (08:59)
[2018-08-27] MEDS: HYDROXYCHLOROQUINE 200 MG TAB PO SCH (08:59)
[2018-08-27] MEDS: DOCUSATE SODIUM 100 MG CAP PO SCH (08:59)
[2018-08-27] MEDS ORDERED: DOXYCYCLINE HYCLATE 100 MG TAB PO SCH (09:00)
[2018-08-27 09:10] LABS: BLOOD UREA NITROGEN 11 MG/DL (7-18); CALCIUM LEVEL 8.6 MG/DL (8.5-10.1); CARBON DIOXIDE LEVEL 26 MEQ/L (21-32); CHLORIDE LEVEL 105 MEQ/L (98-107); CREATININE FOR GFR 0.76 MG/DL (0.55-1.30); GLOMERULAR FILTRATION RATE > 60.0 (>60); GLUCOSE, FASTING 147 MG/DL (70-100); MAGNESIUM LEVEL 1.8 MG/DL (1.8-2.4); POTASSIUM SERUM 4.3 MEQ/L (3.5-5.1); SODIUM LEVEL 138 MEQ/L (136-145)
[2018-08-27] MEDS ORDERED: BACT800T5 PO (10:07)
--- NOTE | 2018-08-28 09:09 | REP ---
CT abdomen without contrast: History: Abdominal wall cellulitis with abscess. Comparison sonography August 25, 2018. CT findings: Preliminary digital archival records clerk radiograph demonstrates a normal bowel gas pattern. The lung bases are clear. The liver and the spleen are normal in size and homogeneous in texture. No adrenal lesion is seen. The gallbladder and the pancreas show no abnormality. Small and large bowel loops are normal in the upper abdomen. There is an intrarenal calculus in the lower pole of the right kidney without hydronephrosis. This calculus measures 3 mm in greatest diameter. There is an area of edema in the subcutaneous fat in the left upper quadrant with overlying dermal thickening and irregularity. No abscess cavity is appreciated. This may reflect cellulitis or post-traumatic change. Impression: No evidence of subcutaneous abscess. There is an area of cellulitis of the subcutaneous fat layer in the left upper quadrant anterior abdominal wall. Intrarenal nephrolithiasis lower pole right kidney. Electronically Signed by Juan Carlos Lopez MD 08/28/2018 09:13 A
== END 2018-08-27 13:00 | disposition home or self-care (01) | DRG 383 ==
LOC: M ED 21:55 → M ED INP 08-25 10:42 → M MS5PR 08-25 13:51
PROVIDERS: ADMIT Hospitalist; ATTEND Hospitalist
DX: L03.311 Cellulitis of abdominal wall (principal); E66.9 Obesity, unspecified; F31.9 Bipolar disorder, unspecified; F43.10 Post-traumatic stress disorder, unspecified; Z79.899 Other long term (current) drug therapy; Z88.8 Allergy status to other drugs, medicaments and biological substances

== ENCOUNTER → 2021-11-27 | Outpatient (CLI) | payer OTHER ==
[~2021-11-27] MED LIST changes: +BACT800T5 PO; +BUPR-71 PO; -BUPR150T5 PO; +BUSP10TA PO; +CYMB1CAP5 PO; +CYMB60CA4 PO; -ENBR50IN6 SC; +ETAN50CA SC; +LAMO100T3 PO; -LATU40TA PO; +LATU40TA2 PO; -LORA1TAB12 PO; +LORA1TAB4 PO; +PANT40TA29 PO; -PANT40TA3 PO; -QUET1TAB9 PO; +QUET200T2 PO
== END ==
LOC: M WHC 10:15
PROVIDERS: ATTEND Obstetrics & Gynecology
DX: Z36.3 Encounter for antenatal screening for malformations (principal); O24.312 Unspecified pre-existing diabetes mellitus in pregnancy, second trimester; Z3A.25 25 weeks gestation of pregnancy

== ENCOUNTER → 2021-12-25 | Outpatient (CLI) | payer OTHER | LOC: M WHC 10:09 | PROVIDERS: ATTEND Obstetrics & Gynecology | DX: O24.313 Unspecified pre-existing diabetes mellitus in pregnancy, third trimester (principal) ==

== ENCOUNTER → 2022-01-15 | Outpatient (CLI) | payer OTHER | LOC: M WHC 10:42 | PROVIDERS: ATTEND Specialist | DX: O24.312 Unspecified pre-existing diabetes mellitus in pregnancy, second trimester (principal) ==

== ENCOUNTER → 2022-02-19 | Outpatient (REF) | payer OTHER | LOC: M SFHCWAGY 10:11 | PROVIDERS: ATTEND Obstetrics & Gynecology | DX: Z36.89 Encounter for other specified antenatal screening (principal); Z3A.37 37 weeks gestation of pregnancy ==

== ENCOUNTER → 2022-02-25 | Outpatient (CLI) | payer OTHER ==
[~2022-02-25] MED LIST changes: +BASA100I SC; +IRON65TA2 PO; +METF-877 PO
== END ==
LOC: M RAD 10:37
PROVIDERS: ATTEND Specialist
DX: O24.313 Unspecified pre-existing diabetes mellitus in pregnancy, third trimester (principal); Z3A.36 36 weeks gestation of pregnancy

== ENCOUNTER 2022-02-26 15:11 | Inpatient (IN) | payer OTHER ==
[~2022-02-26] VITALS: Ht 165.1 cm; Wt 105.6 kg
[2022-02-26] VITALS (13 sets, daily range): BP systolic 102–135; BP diastolic 58–76
[~2022-02-26 15:11] MED LIST changes: -BASA100I SC; -IRON65TA2 PO; -METF-877 PO
[2022-02-26] MEDS ORDERED: LIDOCAINE 1% MDV 20ML VIAL INFIL PRN (17:05)
[2022-02-26] MEDS ORDERED: OXYTOCIN DRIP 30 UNITS in IV 1 EA IV PRN (17:05)
[2022-02-26] MEDS ORDERED: METF-877 PO (17:14)
[2022-02-26] MEDS ORDERED: IRON65TA2 PO (17:14)
[2022-02-26] MEDS ORDERED: BASA100I SC ×2 (17:14)
[2022-02-26] MEDS ORDERED: HOME MED LIST COMPLETE! XX SCH (17:25)
[2022-02-26] MEDS ORDERED: metFORMIN (GLUCOPHAGE) 1000MG TABLET PO SCH (18:00)
[2022-02-26 18:06] LABS: HEMATOCRIT 29.6 % (36.0-47.0); HEMOGLOBIN 9.7 g/dl (12.0-15.5); MEAN CORPUSCULAR HEMOGLOBIN 26.8 pg (27.0-33.0); MEAN CORPUSCULAR HGB CONC 32.8 g/dl (32.0-36.5); MEAN CORPUSCULAR VOLUME 81.8 fl (80.0-96.0); PLATELET COUNT, AUTOMATED 309 10^3/uL (150-450); RED BLOOD COUNT 3.62 10^6/uL (4.00-5.40); WHITE BLOOD COUNT 10.4 10^3/uL (4.0-10.0)
[2022-02-26] MEDS ORDERED: OXYTOCIN DRIP 30 UNITS in IV 1 EA IV SCH (18:35)
[2022-02-26] MEDS ORDERED: LR 1,000 ML IV SCH (18:35)
[2022-02-26] MEDS: LR 1,000 ML IV SCH (18:40)
[2022-02-26] MEDS ORDERED: LEVEMIR (INSULIN DETEMIR) 1 UNITS/0.01ML SC ONE (21:00)
[2022-02-27] VITALS (28 sets, daily range): BP systolic 97–133; BP diastolic 53–84
[2022-02-27] MEDS ORDERED: PROMETHAZINE 25MG/ML 1ML VIAL IV ONE (02:10)
[2022-02-27] MEDS ORDERED: BUTORPHANOL 2 MG/ML 1ML VIAL IV ONE (02:10)
[2022-02-27] MEDS: LR 1,000 ML IV SCH (02:21)
[2022-02-27] MEDS ORDERED: D5W/0.9% SODIUM CHLORIDE 1,000 ML IV SCH (07:20)
[2022-02-27] MEDS ORDERED: INSULIN REGULAR IN 0.9 % NACL 100 UNIT in IV 1 EA IV SCH ×2 (07:20)
[2022-02-27] MEDS ORDERED: INSULIN IV RATE CHANGE DOCUMENTATION ML/HR XX SCH (07:20)
[2022-02-27] MEDS: NS 1,000 ML IV SCH ×3 (07:39→18:53)
[2022-02-27] MEDS ORDERED: REFRIGERATOR IV KEYS XX PRN (19:55)
[2022-02-27] MEDS ORDERED: EPIDURAL COMMENT XX SCH (19:55)
[2022-02-27] MEDS ORDERED: NALOXONE INJ 0.4MG/1ML VIAL IV PRN (19:55)
[2022-02-27] MEDS ORDERED: EPIDURAL/PCA KEYS XX PRN (19:55)
[2022-02-27] MEDS ORDERED: diphenhydrAMINE 50MG/ML VIAL IV PRN (19:55)
[2022-02-27] MEDS ORDERED: ePHEDrine SULFATE 25 MG/5 ML(5MG/ML) SYRINGE IV PRN (19:55)
[2022-02-27] MEDS ORDERED: LACTATED RINGER'S 1000 ML IV PRN (19:55)
[2022-02-27] MEDS ORDERED: ONDANSETRON 4MG 2ML VIAL IV PRN (19:55)
[2022-02-27] MEDS ORDERED: FENTANYL 2MCG/ML ROPIVACAINE 0.2% IN 0.9% NACL 100ML IVBAG As Ordered ONE (19:59)
[2022-02-27] MEDS: FENTANYL/ROPIVACAINE/NACL BAG 100 ML EPIDURAL SCH (20:43)
[2022-02-28] VITALS (31 sets, daily range): BP systolic 82–128; BP diastolic 46–72
[2022-02-28] MEDS: LR 1,000 ML IV SCH ×3 (00:30→20:13)
[2022-02-28] MEDS: FENTANYL/ROPIVACAINE/NACL BAG 100 ML EPIDURAL SCH (05:42)
[2022-02-28] MEDS ORDERED: ePHEDrine INJ 50MG/ML 1ML VIAL IV PRN (07:05)
[2022-02-28] MEDS ORDERED: ePHEDrine SULFATE 25 MG/5 ML(5MG/ML) SYRINGE IV PRN (07:20)
[2022-02-28] MEDS: NS 1,000 ML IV SCH (07:24)
[2022-02-28] MEDS ORDERED: TRANEXAMIC ACID INJection 1,000 MG in NS 100 ML IV PRN (07:35)
[2022-02-28] MEDS ORDERED: METHYLERGONOVINE MALEATE 0.2 MG TAB PO PRN (07:35)
[2022-02-28] MEDS ORDERED: OXYTOCIN DRIP 30 UNITS in IV 1 EA IV SCH ×2 (07:35→10:40)
[2022-02-28] MEDS ORDERED: LIDOCAINE 2% W/EPINEPHRINE 20ML VIAL **PRES FREE As Ordered ONE (08:29)
[2022-02-28] MEDS ORDERED: BICITRA 30ML SOLN UDC PO ONE (08:30)
[2022-02-28] MEDS ORDERED: AZITHROMYCIN INJ 500 MG, VIAL MATE ADAPTER 1 EACH in NS 250 ML IV ONE (08:30)
[2022-02-28] MEDS ORDERED: ceFAZolin SOD 2 GM in IV 1 EA IV ONE (08:30)
[2022-02-28] MEDS: DOCUSATE SODIUM 100MG CAPSULE PO SCH ×2 (09:00→20:14)
[2022-02-28] MEDS: PRENATAL VITAMINS CHEWABLE TABLET PO SCH (09:00)
[2022-02-28] MEDS ORDERED: OXYTOCIN 30 UNITS IN 0.9% NaCl 500ML IV BAG (J2590) As Ordered ONE (09:53)
[2022-02-28] MEDS ORDERED: MORPHINE PRES-FREE INJ 10 MG/10 ML VIAL As Ordered ONE (09:53)
[2022-02-28] MEDS ORDERED: KETOROLAC 60MG 2ML VIAL As Ordered ONE (09:57)
[2022-02-28] MEDS ORDERED: ONDANSETRON 4MG 2ML VIAL As Ordered ONE (09:57)
[2022-02-28 10:06] LABS: CORD GAS ABE A -6.9; CORD GAS ABE V -3.6; CORD GAS HCO3 A 18.1 MEQ/L; CORD GAS HCO3 V 21.8 MEQ/L; CORD GAS O2 SAT A 67.7 %; CORD GAS O2 SAT V 64.3 %; CORD GAS PCO2 V 40.6 mmHg; CORD GAS PH A 7.332 UNITS; CORD GAS PH V 7.348 UNITS; CORD GAS PO2 A 28.9 mmHg; CORD GAS PO2 V 26.1 mmHg; CORD GAS SBC A 18.3 MEQ/L; CORD GAS SBC V 20.8 MEQ/L; CORD GAS TCO2 A 19.2 MEQ/L; CORD GAS TCO2 V 23.1 MEQ/L
[2022-02-28] MEDS ORDERED: SIMETHICONE 80MG CHEW TAB PO PRN (10:40)
[2022-02-28] MEDS ORDERED: RHOGAM 300 MCG (1500 IU) INJ (J2790) IM SCH (10:40)
[2022-02-28] MEDS ORDERED: MOM 30ML SUSPENSION UDC PO PRN (10:40)
[2022-02-28] MEDS ORDERED: **NOTE PATIENT COMMENT** MISC XX SCH (10:55)
[2022-02-28] MEDS ORDERED: diphenhydrAMINE 50MG/ML VIAL IV PRN (10:55)
[2022-02-28] MEDS ORDERED: NALOXONE INJ 0.4MG/1ML VIAL IV PRN ×2 (10:55)
[2022-02-28] MEDS ORDERED: FOLI400T13 PO (12:17)
[2022-02-28] MEDS ORDERED: PRENTAB9 PO (12:17)
[2022-02-28] MEDS: METOCLOPRAMIDE INJ 10MG/2ML VIAL IV PRN ×2 (14:23→20:32)
[2022-02-28] MEDS ORDERED: KETOROLAC 30 MG/ML 1ML VIAL IV SCH (16:00)
[2022-02-28] MEDS: metFORMIN (GLUCOPHAGE) 1000MG TABLET PO SCH (17:57)
[2022-02-28] MEDS: SLF 3 ML SYR IV SCH ×2 (17:57→20:13)
[2022-02-28] MEDS: IBUPROFEN 800 MG TAB PO SCH (22:29)
[2022-02-28] MEDS ORDERED: LR 1,000 ML IV ONE (22:50)
[2022-03-01] VITALS (7 sets, daily range): BP systolic 101–117; BP diastolic 50–62
[2022-03-01] MEDS: LR 1,000 ML IV SCH ×3 (01:54→10:40)
[2022-03-01] MEDS: SLF 3 ML SYR IV SCH (02:10)
[2022-03-01] MEDS: IBUPROFEN 800 MG TAB PO SCH ×2 (06:52→15:35)
[2022-03-01 07:50] LABS: HEMATOCRIT 24.4 % (36.0-47.0); HEMOGLOBIN 7.6 g/dl (12.0-15.5); MEAN CORPUSCULAR HEMOGLOBIN 26.2 pg (27.0-33.0); MEAN CORPUSCULAR HGB CONC 31.1 g/dl (32.0-36.5); MEAN CORPUSCULAR VOLUME 84.1 fl (80.0-96.0); PLATELET COUNT, AUTOMATED 271 10^3/uL (150-450); WHITE BLOOD COUNT 10.6 10^3/uL (4.0-10.0)
[2022-03-01] MEDS: DOCUSATE SODIUM 100MG CAPSULE PO SCH ×2 (08:47→20:30)
[2022-03-01] MEDS: metFORMIN (GLUCOPHAGE) 1000MG TABLET PO SCH ×2 (08:48→18:40)
[2022-03-01] MEDS: PRENATAL VITAMINS CHEWABLE TABLET PO SCH (08:48)
[2022-03-01] MEDS ORDERED: LOPERAMIDE 2 MG CAPLET PO PRN (15:20)
[2022-03-01] MEDS ORDERED: LOPERAMIDE 2 MG CAPLET PO ONE (15:20)
[2022-03-02] MEDS: IBUPROFEN 800 MG TAB PO SCH ×2 (00:09→08:12)
[2022-03-02 02:00] VITALS: BP 124/71
[2022-03-02 06:00] VITALS: BP 114/64
[2022-03-02] MEDS: metFORMIN (GLUCOPHAGE) 1000MG TABLET PO SCH (08:11)
[2022-03-02] MEDS: DOCUSATE SODIUM 100MG CAPSULE PO SCH ×2 (08:13→14:18)
[2022-03-02] MEDS: PRENATAL VITAMINS CHEWABLE TABLET PO SCH (08:13)
[2022-03-02] MEDS ORDERED: MEASLES,MUMPS,RUBELLA VACCINE INJ (MMR-II) (90707) SC.IMMUN ONE (09:00)
[2022-03-02] MEDS ORDERED: ACET-683 PO (17:26)
[2022-03-02] MEDS ORDERED: COLA100C5 PO (17:26)
[2022-03-02] MEDS ORDERED: OXYC-517 PO (17:26)
[2022-03-02] MEDS ORDERED: IBUP-1022 PO (17:26)
== END 2022-03-02 18:40 | disposition home or self-care (01) | DRG 540 ==
LOC: M LDO 15:11 → M LDI 16:56 → M OBS 02-28 13:05
PROVIDERS: ADMIT Advanced Practice Midwife; ATTEND Obstetrics & Gynecology
PROC: 3E0P7GC Introduction of Other Therapeutic Substance into Female Reproductive, Via Natural or Artificial Opening (ICD-10-PCS; 2022-02-26)
PROC: 10907ZC Drainage of Amniotic Fluid, Therapeutic from Products of Conception, Via Natural or Artificial Opening (ICD-10-PCS; 2022-02-27)
PROC: 0UB70ZZ Excision of Bilateral Fallopian Tubes, Open Approach (ICD-10-PCS; 2022-02-28)
PROC: 10D00Z1 Extraction of Products of Conception, Low, Open Approach (ICD-10-PCS; principal; 2022-02-28 09:50)
DX: O34.211 Maternal care for low transverse scar from previous cesarean delivery (principal); Z3A.38 38 weeks gestation of pregnancy; Z37.0 Single live birth; O76 Abnormality in fetal heart rate and rhythm complicating labor and delivery; O62.0 Primary inadequate contractions; O66.41 Failed attempted vaginal birth after previous cesarean delivery; Z30.2 Encounter for sterilization; O24.12 Pre-existing type 2 diabetes mellitus, in childbirth

== ENCOUNTER 2022-11-09 13:00 | Emergency (ER) | payer OTHER ==
[~2022-11-09] VITALS: Ht 165.1 cm; Wt 101.1 kg
[~2022-11-09 13:00] MED LIST changes: +ACET-683 PO; +BASA100I SC; +COLA100C5 PO; +FOLI400T13 PO; -HYDR200T3 PO; +HYDR200T46 PO; +IBUP-1022 PO; +IRON65TA2 PO; +LORA1TAB23 PO; -LORA1TAB4 PO; +METF-877 PO; +OXYC-517 PO; +PRENTAB9 PO
[2022-11-09] MEDS ORDERED: FLOM0.4C39 PO (13:21)
[2022-11-09] MEDS ORDERED: METH-1165 PO (13:21)
[2022-11-09] MEDS ORDERED: PROZ40CA PO (13:21)
[2022-11-09] MEDS ORDERED: BACTDSTA PO (13:22)
[2022-11-09 14:15] LABS: BASO % 0.4 % (0.0-1.0); EOS # 0.1 10^3/uL (0.0-0.5); HEMATOCRIT 38.1 % (36.0-47.0); HEMOGLOBIN 12.1 g/dl (12.0-15.5); LYMPH # 2.1 10^3/uL (1.5-5.0); LYMPH % 22.8 % (24.0-44.0); MEAN CORPUSCULAR HEMOGLOBIN 26.5 pg (27.0-33.0); MEAN CORPUSCULAR HGB CONC 31.8 g/dl (32.0-36.5); MEAN CORPUSCULAR VOLUME 83.6 fl (80.0-96.0); MONO # 0.5 10^3/uL (0.0-0.8); MONO % 5.6 % (2.0-8.0); NEUTROPHILS # 6.4 10^3/uL (1.5-8.5); NEUTROPHILS % 69.9 % (36.0-66.0); PLATELET COUNT, AUTOMATED 406 10^3/uL (150-450); RED BLOOD COUNT 4.56 10^6/uL (4.00-5.40); WHITE BLOOD COUNT 9.1 10^3/uL (4.0-10.0)
[2022-11-09 14:52] LABS: LIPASE 30 U/L (12-53)
[2022-11-09 14:54] LABS: ALBUMIN 3.9 G/DL (3.2-5.2); ALKALINE PHOSPHATASE 140 U/L (46-116); ALT/SGPT 20 U/L (7.0-40); AST/SGOT 11 U/L (<34); BILIRUBIN,DIRECT 0.1 MG/DL (<0.4); BILIRUBIN,TOTAL 0.5 MG/DL (0.3-1.2); BLOOD UREA NITROGEN 11 MG/DL (9-23); CALCIUM LEVEL 9.2 MG/DL (8.5-10.1); CARBON DIOXIDE LEVEL 25 MMOL/L (20-31); CHLORIDE LEVEL 101 MMOL/L (98-107); CREATININE FOR GFR 0.71 MG/DL (0.55-1.30); GLOMERULAR FILTRATION RATE > 60.0 (>60); GLUCOSE, FASTING 95 MG/DL (60-100); POTASSIUM SERUM 4.4 MMOL/L (3.5-5.1); SODIUM LEVEL 137 MMOL/L (136-145); TOTAL PROTEIN 7.7 G/DL (5.7-8.2)
[2022-11-09 14:59] LABS: HCG, SERUM QUALITATIVE NEGATIVE (NEGATIVE)
[2022-11-09] MEDS ORDERED: ONDANSETRON 4MG ORAL DISINTEGRATING TAB PO ONE (17:55)
[2022-11-09] MEDS ORDERED: KETOROLAC 30 MG/ML 1ML VIAL IM ONE (17:55)
[2022-11-09] MEDS ORDERED: KETO10TAB PO (18:06)
[2022-11-09] MEDS ORDERED: PYRI1TAB5 PO (18:06)
[2022-11-09] MEDS ORDERED: ONDA4TAB6 PO (18:06)
[2022-11-09 18:25] VITALS: BP 107/56; TEMP 97.8; O2SAT 100
== END 2022-11-09 18:55 | disposition home or self-care (01) ==
LOC: M ED 13:00
DX: N20.0 Calculus of kidney (principal); N13.30 Unspecified hydronephrosis; Z88.8 Allergy status to other drugs, medicaments and biological substances
CPT/HCPCS: 74176; 80048; 80076; 81001; 83690; 84703; 85025; 87086; 96372; 99283; J1885

== ENCOUNTER 2023-01-20 07:47 | Day surgery (SDC) | payer OTHER ==
[~2023-01-20] VITALS: Ht 165.1 cm; Wt 104.2 kg
[~2023-01-20 07:47] MED LIST changes: +ALBU8.5H; +BACTDSTA PO; +FERR325T19; +FLOM0.4C39 PO; +FLUO40CA; +IBUP-1022; +KETO10TAB PO; +METH-1165 PO; +NAPR-885; +ONDA4TAB6 PO; +PROZ40CA PO; +PYRI1TAB5 PO; +ceFAZolin SOD 2 GM in IV 1 EA IV ONE
[2023-01-20] MEDS ORDERED: LR 1,000 ML IV SCH (08:10)
[2023-01-20] MEDS ORDERED: propofoL 200 MG/20 ML VIAL As Ordered ONE (09:12)
[2023-01-20] MEDS ORDERED: LIDOCAINE 2% 100MG/5ML SDV (FOR ANES.) As Ordered ONE (09:12)
[2023-01-20] MEDS ORDERED: ONDANSETRON 4MG 2ML VIAL As Ordered ONE (09:12)
[2023-01-20] MEDS ORDERED: fentaNYL 100 MCG/2 ML INJECTION As Ordered ONE (09:15)
[2023-01-20] MEDS ORDERED: ACETAMINOPHEN 1000MG 100ML IV BAG As Ordered ONE (09:33)
[2023-01-20] MEDS ORDERED: OXYC1TAB23 PO (09:43)
[2023-01-20] MEDS ORDERED: FLOM0.4C39 PO (09:43)
[2023-01-20] MEDS ORDERED: ONDANSETRON 4MG 2ML VIAL IV STA (10:45)
[2023-01-20] MEDS: PERCOCET 5MG/325MG TAB PO PRN ×2 (11:12→11:28)
[2023-01-20 12:00] VITALS: BP 126/73; TEMP 98.2; O2SAT 100
== END 2023-01-20 12:05 | disposition home or self-care (01) ==
LOC: M SDC 07:47
PROVIDERS: ATTEND Urology
DX: N20.0 Calculus of kidney (principal); J45.909 Unspecified asthma, uncomplicated; Z79.899 Other long term (current) drug therapy; Z79.84 Long term (current) use of oral hypoglycemic drugs
CPT/HCPCS: 50590; 74018; 81025; J0131; J0690; J2405; J3010

== ENCOUNTER → 2023-10-25 | Outpatient (REF) ==
[~2023-10-25] MED LIST changes: +ONDA-282 PO; -ONDA4TAB6 PO; +OXYC1TAB23 PO; -ceFAZolin SOD 2 GM in IV 1 EA IV ONE
== END ==
LOC: M PLAIMG 14:11
PROVIDERS: ATTEND Internal Medicine
DX: R52 Pain, unspecified (principal)